=== PATIENT | female | born 2000 | race Caucasian/White ===

== ENCOUNTER 2024-09-11 09:15 | Emergency (ER) | payer OTHER ==
[2024-09-11 09:29] VITALS: BP 103/56; PULSE 73; RESP 18; TEMP 98.4; BMI 27.1
[2024-09-11 10:20] LABS: URINE APPEARANCE CLEAR; URINE BILIRUBIN NEGATIVE (NEGATIVE); URINE COLOR YELLOW; URINE GLUCOSE (UA) NEGATIVE (NEGATIVE); URINE KETONE NEGATIVE (NEGATIVE); URINE LEUK ESTERASE NEGATIVE (NEGATIVE); URINE NITRITE NEGATIVE (NEGATIVE); URINE PROTEIN NEGATIVE (NEGATIVE); URINE UROBILINOGEN 1.0 mg/dL (0.2-1.0)
[2024-09-11 10:24] LABS: ABSOLUTE IMMATURE GRANULOCYTES 0.01 x10^3/uL (0.0-0.031); BASOPHILS # 0.03 x10^3/uL (0.01-0.08); EOSINOPHIL % 1.2 % (0.7-5.8); EOSINOPHILS # 0.07 x10^3/uL (0.04-0.36); MCHC 33.4 g/dl (32.2-35.5); MEAN CELL VOLUME 89.6 fl (79.4-94.8); MEAN PLT VOLUME 12.7 fl (9.4-12.3); MONOCYTE # 0.32 x10^3/uL (0.24-0.86); MONOCYTE % 5.4 % (4.7-12.5); RDW 13.6 % (12.1-16.5)
[2024-09-11 10:35] LABS: CO2 24.0 mmol/L (21-32); GLUCOSE,RANDOM 93.0 mg/dL (74-106)
[2024-09-11 10:38] LABS: CREATININE 0.3 mg/dL (0.55-1.3); SGOT/AST 29.0 U/L (15-37); SGPT/ALT 21.0 U/L (13-61)
[2024-09-11 10:40] LABS: TOT PROT 8.0 g/dl (6.4-8.2)
[2024-09-11 10:41] LABS: ALK PHOS 59.0 U/L (45-117)
[2024-09-11 14:56] LABS: HIV INTERPRETATION NEGATIVE (NEGATIVE)
[2024-09-12 21:00] LABS: HCV DIAGNOSTIC IN-HOUSE W/RFLX NON-REACTIVE (NONREACTIVE)
== END 2024-09-11 11:28 | disposition home or self-care (01) ==
LOC: JER 09:15
DX: O20.9 Hemorrhage in early pregnancy, unspecified (principal); O26.891 Other specified pregnancy related conditions, first trimester; M54.50 Low back pain, unspecified; Z3A.09 9 weeks gestation of pregnancy
CPT/HCPCS: 36415; 76817-TC; 80053; 81003; 84702; 85025; 86803; 87086; 87389; 99284-25